=== PATIENT | female | born 1995 | race Caucasian/White ===

== ENCOUNTER 2021-06-23 08:37 | Emergency (ER) | payer SELFPAY ==
[~2021-06-23] VITALS: Ht 152.4 cm; Wt 64.9 kg
[2021-06-23] MEDS ORDERED: CLARITIN10 MG PO (09:31)
[2021-06-23] MEDS ORDERED: MEDROL DOSEPAK4 MG PO (09:31)
== END 2021-06-23 09:37 | disposition home or self-care (01) ==
LOC: ED 08:37
DX: R21 Rash and other nonspecific skin eruption (principal)

== ENCOUNTER 2022-05-26 22:23 | Emergency (ER) | payer BC ==
[~2022-05-26] VITALS: Ht 152.4 cm; Wt 77.1 kg
[~2022-05-26 22:23] MED LIST: CLARITIN10 MG PO; MEDROL DOSEPAK4 MG PO
[2022-05-26] MEDS ORDERED: SERTRALINE HYDR50 MG PO (22:55)
[2022-05-26] MEDS ORDERED: ASPIRIN CHEWABL81 MG PO (22:55)
[2022-05-26] MEDS ORDERED: PRENATA CHEWAB1 EACH PO (22:56)
[2022-05-26] MEDS ORDERED: IRON 100 PLUS1 EACH PO (22:56)
[2022-05-26 23:56] LABS: BILIRUBIN Negative (Negative); BLOOD Negative (Negative); CLARITY Cloudy (Clear); COLOR Yellow (Yellow); GLUCOSE Negative (Negative); KETONE Negative (Negative); LEUKO ESTERASE 1+ (Negative); NITRITE Negative (Negative); SPECIFIC GRAVITY 1.025 (1.001-1.030)
[2022-05-27 00:05] LABS: BACTERIA 1+; EPITHELIAL CELLS TNTC; WBC 16-20 wbc/hpf (0-5); YEAST 1+
== END 2022-05-27 01:39 | disposition short-term general hospital (02) ==
LOC: ED 22:23
PROVIDERS: Emergency Medicine
DX: O60.03 Preterm labor without delivery, third trimester (principal); Z79.899 Other long term (current) drug therapy; Z79.82 Long term (current) use of aspirin; Z3A.36 36 weeks gestation of pregnancy

== ENCOUNTER → 2022-10-11 | Outpatient (CLI) | payer OTHER ==
[~2022-10-11] MED LIST changes: +ASPIRIN CHEWABL81 MG PO; +IRON 100 PLUS1 EACH PO; +PRENATA CHEWAB1 EACH PO; +SERTRALINE HYDR50 MG PO
== END | disposition home or self-care (01) ==
LOC: RAD 18:13
PROVIDERS: ATTEND Family Medicine
DX: M54.9 Dorsalgia, unspecified (principal)